=== PATIENT | male | born 1980 | race African-American/Black ===

== ENCOUNTER 2017-05-27 00:01 | Emergency (ER) | payer OTHER ==
[~2017-05-27] VITALS: Ht 177.8 cm; Wt 82.0 kg
[2017-05-27 00:04] VITALS: BP 142/81; PULSE 110; PULSE 125; RESP 20; TEMP 98.3; O2SAT 99
[2017-05-27] MEDS ORDERED: KETOROLAC TROMETHAMINE 60 MG/2 ML (IM) VIAL IM ONE (00:15)
--- NOTE | 2017-05-27 01:05 | PD ---
HPI Chief Complaint: Medical Clearance Time Seen by Provider: 00:11 Travel History International Travel<30 days: No Contact w/Intl Traveler<30days: No Traveled to known affect area: No History of Present Illness HPI is a 37-year-old man who was in custody as soon as he was in custody according to the police and paramedics he developed severe right leg pain in the femur area anterior. There is no bruise there is no hematoma there is no signs of trauma all his skin and pulses are normal in that leg distal. Internal rotation of his femoral head does not elicit any femoral head pain. Patient is screaming uncontrollably inconsolable. Patient is uncooperative with history of present illness or ROS screaming uncontrollably and not consolable to get him to cooperate with my questions physical exam is focused on his lower extremity which is completely normal I will order an x-ray. PFSH Past Medical History Immunizations Current: Yes Tetanus Vaccination: Unknown Influenza Vaccination: No Social History Alcohol Use: No Tobacco Use: No Substance Use: No Allergies-Medications (Allergen,Severity, Reaction): Coded Allergies: No Known Allergies (Unverified , 05/27/17) Review of Systems ROS Limitations: Uncooperative (screaming without stopping that his leg is hurting right anterior femur area) Except as stated in HPI: all other systems reviewed are Neg Physical Exam Narrative Patient is screaming in pain uncontrollably he is inconsolable with questions focused exam on lower extremity right there is no hematoma there is no laceration there is no swelling appearance is the same to both legs lower right lower left leg are the same pedal pulses are both 2+ no signs of vesicles no signs of trauma. No pain with internal rotation the femoral head on the right no crepitus no deformity physical exam is negative for trauma to the right lower leg from the inguinal down to the pedal pulse Data Data Last Documented VS Vital Signs Date Time Temp Pulse Resp B/P (MAP) Pulse Ox O2 Delivery O2 Flow Rate FiO2 05/27/17 00:04 98.3 110 20 142/81 (101) 99 Orders Orders Ketorolac Inj (Toradol Inj) (05/27/17 00:15) Femur (Ap & Lat/2vws) (05/27/17 ) Ed Discharge Order (05/27/17 01:02) MDM Medical Decision Making Medical Screen Exam Complete: Yes Emergency Medical Condition: Yes Differential Diagnosis hematoma or contusion or fracture or malingering Narrative Course x-ray negative and discharged to police custody Diagnosis Primary Impression: Leg pain, anterior Qualified Codes: M79.604 - Pain in right leg Disposition: [address] LAW ENFORCEMNT Condition: Prosper Alfaro MD May 27, 2017 01:05
--- NOTE | 2017-05-27 02:01 | RADRPT ---
EXAM DATE/TIME: 05/27/2017 00:50 [facility] COMPARISON: No previous studies available for comparison. INDICATIONS : Right leg pain. MEDICAL HISTORY : None. SURGICAL HISTORY : None. ENCOUNTER: Initial ACUITY: 1 day PAIN SCORE: 10/10 LOCATION: Right femur FINDINGS: Two view examination of the right femur demonstrates no evidence of fracture or dislocation. Bony mi neralization is normal. The soft tissue structures are intact. There is mild motion artifact. CONCLUSION: Negative trauma study. Zeus Vasquez MD on May 27, 2017 at 1:47 Board Certified Radiologist. This report was verified electronically.
== END 2017-05-27 03:55 ==
LOC: NEPC 00:01
DX: M79.604 Pain in right leg (principal)
CPT/HCPCS: 73552; 96372; 99283